=== PATIENT | male | born 1970 | race African-American/Black ===

== ENCOUNTER 2023-05-25 10:30 | Inpatient (IN) | payer SELFPAY ==
[2023-05-25 12:21] LABS: ALBUMIN 4.9 g/dl (3.4-5.0); ALK PHOS 47 U/L (45-117); ANION GAP 12 MMOL/L (8-16); BILIRUBIN,TOTAL 3.8 mg/dl (0.2-1); BLOOD UREA NITROGEN 13.5 mg/dl (7-18); CALCIUM 9.7 mg/dl (8.5-10.1); CHLORIDE 92 mmol/L (98-107); CO2 41 mmol/L (21-32); CREATININE 1.7 mg/dl (0.6-1.3); GLUCOSE,RANDOM 105 mg/dl (74-106); SGOT/AST 77.8 U/L (15-37); SODIUM 145 mmol/L (136-145); TOT PROT 7.9 g/dl (6.4-8.2)
[2023-05-25 12:28] LABS: POTASSIUM 2.2 mmol/L (3.5-5.1)
[2023-05-25] MEDS ORDERED: POTASSIUM CHLORIDE TABS 20 MEQ TABLET.ER (FP) PO ONE ×4 (12:34→19:51)
[2023-05-25] MEDS ORDERED: KCL 10 MEQ IVPB 10 MEQ/100 ML INFUS.BAG IVPB ONE (12:38)
[2023-05-25] MEDS ORDERED: KCL 10 MEQ IVPB 10 MEQ/100 ML INFUS.BAG IVPB SCH (12:45)
[2023-05-25 12:54] LABS: HEMOGLOBIN 15.2 G/dL (11.7-16.9); MCH 28.9 pg (25.7-33.7); MCHC 34.5 g/dl (32.0-35.9); MEAN CELL VOLUME 83.9 fl (80-96); PLATELET COUNT 191.5 10^3/uL (134-434); RBC 5.25 10^6/uL (4.00-5.60); RDW 14.6 % (11.9-15.9); WHITE BLOOD COUNT 3.5 10^3/uL (4.0-10.8)
[2023-05-25 13:01] LABS: PLATELET ESTIMATE ADEQUATE
[2023-05-25] MEDS ORDERED: ASPIRIN 325 MG TABLET PO ONE (13:02)
[2023-05-25] MEDS ORDERED: ASPIRIN 325 MG TABLET ONE (13:37)
[2023-05-25 14:41] LABS: LIPASE 237 U/L (73-393)
[2023-05-25 14:47] LABS: N-TERMINAL BNP 131.1 pg/ml (5-125)
[2023-05-25 19:31] LABS: ALBUMIN 4.5 g/dl (3.4-5.0); BILIRUBIN,TOTAL 2.9 mg/dl (0.2-1); CALCIUM 9.3 mg/dl (8.5-10.1); CREATININE 1.5 mg/dl (0.6-1.3); SGOT/AST 66.7 U/L (15-37); SGPT/ALT 48.4 U/L (7-52); TOT PROT 7.2 g/dl (6.4-8.2)
[2023-05-25] MEDS ORDERED: POTASSIUM CHLORIDE ORAL LIQUID 20 MEQ/15 ML PO ONE (19:42)
[2023-05-25] MEDS: amLODIPine BESYLATE 10 MG TABLET (FP) PO SCH (22:26)
[2023-05-26 02:51] VITALS: BMI 23.7
[2023-05-26 08:53] LABS: BASO % 0.8 % (0-2.0); EOS % 3.5 % (0-4.5); HEMOGLOBIN 13.5 GM/dL (11.7-16.9); LYMPH % 30.3 % (8-40); MCH 27.9 pg (25.7-33.7); MCHC 34.5 g/dl (32.0-35.9); MEAN CELL VOLUME 80.7 fl (80-96); MEAN PLT VOLUME 9.6 fl (7.5-11.1); MONO % 13.3 % (3.8-10.2); NEUT % 52.1 % (42.8-82.8); PLATELET COUNT 203 10^3/uL (134-434); RBC 4.83 M/mm3 (4.00-5.60); WHITE BLOOD COUNT 3.3 K/mm3 (4.0-10.0)
[2023-05-26] MEDS ORDERED: amLODIPine BESYLATE 10 MG TABLET (FP) PO SCH (10:00)
[2023-05-26] MEDS: amLODIPine BESYLATE 10 MG TABLET (FP) PO SCH (10:11)
[2023-05-26] MEDS: POTASSIUM CHLORIDE TABS 20 MEQ TABLET.ER (FP) PO SCH ×2 (10:11→21:05)
[2023-05-26 10:21] LABS: ALBUMIN 3.6 g/dl (3.4-5.0); ALK PHOS 46 U/L (45-117); ANION GAP 6 MMOL/L (8-16); BILIRUBIN,TOTAL 3.7 mg/dL (0.2-1); BLOOD UREA NITROGEN 9.7 mg/dL (7-18); CALCIUM 8.2 mg/dL (8.5-10.1); CHLORIDE 100 mmol/L (98-107); CO2 38 mmol/L (21-32); CREATININE 1.5 mg/dL (0.55-1.3); GLUCOSE,RANDOM 89 mg/dL (74-106); MAGNESIUM 2.2 mg/dL (1.8-2.4); PHOSPHOROUS 2.5 mg/dL (2.5-4.9); POTASSIUM 1.9 mmol/L (3.5-5.1); SGOT/AST 66 U/L (15-37); SGPT/ALT 57 U/L (13-61); SODIUM 144 mmol/L (136-145); TOT PROT 6.6 g/dl (6.4-8.2)
[2023-05-26] MEDS: KCL 10 MEQ IVPB 10 MEQ/100 ML INFUS.BAG IVPB SCH ×7 (10:50→22:52)
[2023-05-26 11:07] LABS: BILIRUBIN,DIRECT 0.5 mg/dL (0.0-0.2)
[2023-05-26] MEDS ORDERED: LOSARTAN POTASSIUM 50 MG TABLET PO SCH (16:15)
[2023-05-26 16:19] LABS: CHLORIDE 100 mmol/L (98-107); SODIUM 143 mmol/L (136-145)
[2023-05-26 16:21] LABS: BLOOD UREA NITROGEN 10.2 mg/dL (7-18); CALCIUM 8.7 mg/dL (8.5-10.1)
[2023-05-26 16:22] LABS: CO2 37 mmol/L (21-32); GLUCOSE,RANDOM 103 mg/dL (74-106)
[2023-05-26 16:24] LABS: SGPT/ALT 67 U/L (13-61)
[2023-05-26 16:25] LABS: CREATININE 1.7 mg/dL (0.55-1.3); SGOT/AST 77 U/L (15-37)
[2023-05-26 16:26] LABS: TOT PROT 7.5 g/dl (6.4-8.2)
[2023-05-26 16:28] LABS: ALK PHOS 54 U/L (45-117)
[2023-05-26] MEDS: SODIUM CHLORIDE 0.9%/KCL 20 MEQ/1,000 ML INFUS.BAG IV SCH (16:35)
[2023-05-26] MEDS: LOSARTAN POTASSIUM 25 MG TABLET PO SCH (16:35)
[2023-05-26 16:40] LABS: ANION GAP 6 MMOL/L (8-16); POTASSIUM 2.4 mmol/L (3.5-5.1)
[2023-05-26] MEDS ORDERED: POTASSIUM CHLORIDE ORAL LIQUID 20 MEQ/15 ML PO ONE (17:35)
[2023-05-26] MEDS: HEPARIN NA (PORCINE) 5,000 UNITS/ML 1ML VIAL SQ SCH (21:05)
[2023-05-27] MEDS: HEPARIN NA (PORCINE) 5,000 UNITS/ML 1ML VIAL SQ SCH ×3 (06:51→21:22)
[2023-05-27 07:39] LABS: BASO % 1.3 % (0-2.0); EOS % 4.8 % (0-4.5); HEMATOCRIT 37.1 % (35.4-49); HEMOGLOBIN 12.9 GM/dL (11.7-16.9); LYMPH % 36.1 % (8-40); MCH 28.4 pg (25.7-33.7); MCHC 34.8 g/dl (32.0-35.9); MEAN CELL VOLUME 81.6 fl (80-96); MEAN PLT VOLUME 9.7 fl (7.5-11.1); NEUT % 45.8 % (42.8-82.8); PLATELET COUNT 195 10^3/uL (134-434); RBC 4.55 M/mm3 (4.00-5.60); RDW 14.1 % (11.9-15.9); WHITE BLOOD COUNT 2.8 K/mm3 (4.0-10.0)
[2023-05-27 08:03] LABS: CHLORIDE 106 mmol/L (98-107); SODIUM 146 mmol/L (136-145)
[2023-05-27 08:07] LABS: ALBUMIN 3.4 g/dl (3.4-5.0); BLOOD UREA NITROGEN 10.9 mg/dL (7-18); CALCIUM 7.9 mg/dL (8.5-10.1); CO2 34 mmol/L (21-32); GLUCOSE,RANDOM 91 mg/dL (74-106); MAGNESIUM 2.2 mg/dL (1.8-2.4)
[2023-05-27 08:10] LABS: SGOT/AST 57 U/L (15-37); SGPT/ALT 55 U/L (13-61)
[2023-05-27 08:11] LABS: CREATININE 1.5 mg/dL (0.55-1.3); PHOSPHOROUS 2.5 mg/dL (2.5-4.9)
[2023-05-27 08:12] LABS: TOT PROT 6.4 g/dl (6.4-8.2)
[2023-05-27 08:13] LABS: ALK PHOS 42 U/L (45-117)
[2023-05-27 08:24] LABS: ANION GAP 7 MMOL/L (8-16); BILIRUBIN,TOTAL 2.6 mg/dL (0.2-1); POTASSIUM 2.3 mmol/L (3.5-5.1)
[2023-05-27] MEDS ORDERED: POTASSIUM CHLORIDE TABS 20 MEQ TABLET.ER (FP) PO ONE (10:30)
[2023-05-27] MEDS: amLODIPine BESYLATE 10 MG TABLET (FP) PO SCH (10:48)
[2023-05-27] MEDS: LOSARTAN POTASSIUM 25 MG TABLET PO SCH (10:48)
[2023-05-27] MEDS: KCL 10 MEQ IVPB 10 MEQ/100 ML INFUS.BAG IVPB SCH ×6 (10:49→22:14)
[2023-05-27] MEDS: POTASSIUM CHLORIDE TABS 20 MEQ TABLET.ER (FP) PO SCH ×3 (10:49→21:21)
[2023-05-27] MEDS: SODIUM CHLORIDE 0.9%/KCL 20 MEQ/1,000 ML INFUS.BAG IV SCH (10:50)
[2023-05-27 11:08] LABS: KAPPA/LAMBDA RATIO, UR 6.82 (1.83-14.26)
[2023-05-27 13:59] LABS: CHLORIDE 106 mmol/L (98-107); SODIUM 145 mmol/L (136-145)
[2023-05-27 14:03] LABS: ALBUMIN 3.5 g/dl (3.4-5.0); CO2 34 mmol/L (21-32); GLUCOSE,RANDOM 103 mg/dL (74-106)
[2023-05-27 14:06] LABS: CREATININE 1.4 mg/dL (0.55-1.3)
[2023-05-27 14:07] LABS: TOT PROT 6.8 g/dl (6.4-8.2)
[2023-05-27 14:08] LABS: BILIRUBIN,TOTAL 2.4 mg/dL (0.2-1)
[2023-05-27 14:09] LABS: ALK PHOS 46 U/L (45-117)
[2023-05-27 14:11] LABS: BLOOD UREA NITROGEN 9.8 mg/dL (7-18); SGPT/ALT 59 U/L (13-61)
[2023-05-27 14:14] LABS: ANION GAP 6 MMOL/L (8-16); CALCIUM 8.2 mg/dL (8.5-10.1); POTASSIUM 2.4 mmol/L (3.5-5.1); SGOT/AST 57 U/L (15-37)
[2023-05-27 19:30] LABS: POTASSIUM 2.7 mmol/L (3.5-5.1)
[2023-05-27] MEDS ORDERED: POTASSIUM CHLORIDE ORAL LIQUID 20 MEQ/15 ML PO ONE (19:42)
[2023-05-28] MEDS: KCL 10 MEQ IVPB 10 MEQ/100 ML INFUS.BAG IVPB SCH ×4 (00:15→23:31)
[2023-05-28] MEDS: HEPARIN NA (PORCINE) 5,000 UNITS/ML 1ML VIAL SQ SCH ×3 (06:37→21:51)
[2023-05-28] MEDS: POTASSIUM CHLORIDE TABS 20 MEQ TABLET.ER (FP) PO SCH ×3 (06:37→21:51)
[2023-05-28 08:06] LABS: MCH 28.5 pg (25.7-33.7); MCHC 35.1 g/dl (32.0-35.9); MEAN CELL VOLUME 81.1 fl (80-96); PLATELET COUNT 225 10^3/uL (134-434); RBC 4.93 M/mm3 (4.00-5.60); RDW 14.7 % (11.9-15.9); WHITE BLOOD COUNT 3.5 K/mm3 (4.0-10.0)
[2023-05-28 08:10] LABS: MYOGLOBIN SERUM 598 ng/mL (28-72)
[2023-05-28 08:29] LABS: BLOOD UREA NITROGEN 9.7 mg/dL (7-18)
[2023-05-28 08:32] LABS: CREATININE 1.5 mg/dL (0.55-1.3); PHOSPHOROUS 2.3 mg/dL (2.5-4.9)
[2023-05-28 08:34] LABS: BILIRUBIN,TOTAL 2.3 mg/dL (0.2-1); TOT PROT 7.8 g/dl (6.4-8.2)
[2023-05-28] MEDS: LOSARTAN POTASSIUM 25 MG TABLET PO SCH (09:43)
[2023-05-28] MEDS: amLODIPine BESYLATE 10 MG TABLET (FP) PO SCH (09:43)
[2023-05-28] MEDS: SODIUM CHLORIDE 0.9%/KCL 20 MEQ/1,000 ML INFUS.BAG IV SCH (10:45)
[2023-05-28] MEDS ORDERED: NAPH,MB-DB/K PH,MBDB POWDER PACKET PO ONE (12:59)
[2023-05-28 16:14] LABS: CHLORIDE 111 mmol/L (98-107); SODIUM 147 mmol/L (136-145)
[2023-05-28 16:17] LABS: BLOOD UREA NITROGEN 10.4 mg/dL (7-18); CALCIUM 9.2 mg/dL (8.5-10.1); CO2 31 mmol/L (21-32); GLUCOSE,RANDOM 119 mg/dL (74-106)
[2023-05-28 16:20] LABS: CREATININE 1.5 mg/dL (0.55-1.3)
[2023-05-28 17:22] LABS: ANION GAP 6 MMOL/L (8-16); POTASSIUM 2.8 mmol/L (3.5-5.1)
[2023-05-28] MEDS ORDERED: POTASSIUM CHLORIDE TABS 10 MEQ TABLET.ER (FP) PO ONE (17:46)
[2023-05-28 21:09] LABS: GLIADIN ANTIBODY IGA 4 units (0-19); GLIADIN ANTIBODY IGG 3 units (0-19)
[2023-05-29] MEDS: POTASSIUM CHLORIDE TABS 20 MEQ TABLET.ER (FP) PO SCH ×2 (06:30→13:34)
[2023-05-29] MEDS: HEPARIN NA (PORCINE) 5,000 UNITS/ML 1ML VIAL SQ SCH ×3 (06:31→21:53)
[2023-05-29] MEDS: amLODIPine BESYLATE 10 MG TABLET (FP) PO SCH (09:36)
[2023-05-29] MEDS: LOSARTAN POTASSIUM 25 MG TABLET PO SCH (09:36)
[2023-05-29] MEDS ORDERED: LOSARTAN POTASSIUM 25 MG TABLET PO ONE (11:30)
[2023-05-29 12:52] LABS: POTASSIUM 2.9 mmol/L (3.5-5.1)
[2023-05-29] MEDS ORDERED: SPIRONOLACTONE 25 MG TABLET PO SCH (20:30)
[2023-05-29] MEDS: LOSARTAN POTASSIUM 50 MG TABLET PO SCH (21:53)
[2023-05-30] MEDS: HEPARIN NA (PORCINE) 5,000 UNITS/ML 1ML VIAL SQ SCH ×3 (06:32→21:16)
[2023-05-30 07:41] LABS: HEMATOCRIT 37.5 % (35.4-49); HEMOGLOBIN 13.2 GM/dL (11.7-16.9); MCH 28.3 pg (25.7-33.7); MCHC 35.2 g/dl (32.0-35.9); MEAN CELL VOLUME 80.4 fl (80-96); MEAN PLT VOLUME 8.6 fl (7.5-11.1); PLATELET COUNT 214 10^3/uL (134-434); RBC 4.66 M/mm3 (4.00-5.60); RDW 14.8 % (11.9-15.9); WHITE BLOOD COUNT 3.1 K/mm3 (4.0-10.0)
[2023-05-30 07:58] LABS: CHLORIDE 110 mmol/L (98-107); SODIUM 148 mmol/L (136-145)
[2023-05-30 08:02] LABS: CALCIUM 8.9 mg/dL (8.5-10.1); CO2 30 mmol/L (21-32); GLUCOSE,RANDOM 94 mg/dL (74-106)
[2023-05-30 08:03] LABS: BLOOD UREA NITROGEN 9.1 mg/dL (7-18); MAGNESIUM 2.1 mg/dL (1.8-2.4)
[2023-05-30 08:06] LABS: CREATININE 1.6 mg/dL (0.55-1.3); PHOSPHOROUS 3.7 mg/dL (2.5-4.9)
[2023-05-30 08:19] LABS: ANION GAP 7 MMOL/L (8-16); POTASSIUM 2.5 mmol/L (3.5-5.1)
[2023-05-30] MEDS: SPIRONOLACTONE 25 MG TABLET PO SCH (09:35)
[2023-05-30] MEDS: amLODIPine BESYLATE 10 MG TABLET (FP) PO SCH (09:35)
[2023-05-30] MEDS: LOSARTAN POTASSIUM 50 MG TABLET PO SCH ×2 (09:35→21:16)
[2023-05-30] MEDS: KCL 10 MEQ IVPB 10 MEQ/100 ML INFUS.BAG IVPB SCH ×3 (10:29→14:31)
[2023-05-30] MEDS: POTASSIUM CHLORIDE TABS 20 MEQ TABLET.ER (FP) PO SCH ×2 (13:12→21:16)
[2023-05-30 14:08] LABS: RENIN ACTIVITY(PRA) 0.637 ng/mL/hr (0.167-5.380)
[2023-05-31] MEDS: HEPARIN NA (PORCINE) 5,000 UNITS/ML 1ML VIAL SQ SCH ×2 (06:08→13:20)
[2023-05-31] MEDS: POTASSIUM CHLORIDE TABS 20 MEQ TABLET.ER (FP) PO SCH ×2 (06:08→13:20)
[2023-05-31 07:44] LABS: HEMATOCRIT 36.9 % (35.4-49); HEMOGLOBIN 13.1 GM/dL (11.7-16.9); MCH 28.7 pg (25.7-33.7); MCHC 35.6 g/dl (32.0-35.9); MEAN CELL VOLUME 80.7 fl (80-96); MEAN PLT VOLUME 9.2 fl (7.5-11.1); PLATELET COUNT 224 10^3/uL (134-434); RBC 4.57 M/mm3 (4.00-5.60); WHITE BLOOD COUNT 3.4 K/mm3 (4.0-10.0)
[2023-05-31 08:08] LABS: POTASSIUM 3.1 mmol/L (3.5-5.1)
[2023-05-31 08:14] LABS: PHOSPHOROUS 2.7 mg/dL (2.5-4.9)
[2023-05-31 08:16] LABS: BILIRUBIN,TOTAL 2.4 mg/dL (0.2-1); TOT PROT 7.1 g/dl (6.4-8.2)
[2023-05-31 08:22] LABS: ALBUMIN 3.6 g/dl (3.4-5.0); BLOOD UREA NITROGEN 14.7 mg/dL (7-18)
[2023-05-31 08:25] LABS: CREATININE 1.6 mg/dL (0.55-1.3); MAGNESIUM 2.1 mg/dL (1.8-2.4)
[2023-05-31] MEDS: amLODIPine BESYLATE 10 MG TABLET (FP) PO SCH (09:18)
[2023-05-31] MEDS: SPIRONOLACTONE 25 MG TABLET PO SCH (09:18)
[2023-05-31] MEDS: LOSARTAN POTASSIUM 50 MG TABLET PO SCH (09:18)
[2023-05-31 14:49] VITALS: BP 145/99; PULSE 69; RESP 16; TEMP 98
== END 2023-05-31 17:25 | disposition home or self-care (01) | DRG 351 ==
LOC: FER 10:30 → UNDOADMIN 12:58 → FM/S 12:58 → J4W 20:59
PROVIDERS: ADMIT Internal Medicine; ATTEND Internal Medicine
DX: M62.82 Rhabdomyolysis (principal); E87.3 Alkalosis; I44.0 Atrioventricular block, first degree; I12.9 Hypertensive chronic kidney disease with stage 1 through stage 4 chronic kidney disease, or unspecified chronic kidney disease; N18.30 Chronic kidney disease, stage 3 unspecified; N17.9 Acute kidney failure, unspecified; E80.4 Gilbert syndrome; E87.6 Hypokalemia; M89.9 Disorder of bone, unspecified; I24.8 Other forms of acute ischemic heart disease; R82.1 Myoglobinuria; R94.5 Abnormal results of liver function studies; M89.50 Osteolysis, unspecified site; R55 Syncope and collapse; W18.30XA Fall on same level, unspecified, initial encounter; Y92.89 Other specified places as the place of occurrence of the external cause; Y99.8 Other external cause status
CPT/HCPCS: 0241U-QW; 36415; 70450-TC; 71046-TC-FY; 76700-TC; 77074-TC-FY; 80048; 80053; 81003; 82088; 82248; 82310; 82436; 82533; 82550; 82553; 82962; 83036; 83516; 83605; 83690; 83735; 83874; 83880; 83883; 83930; 83935; 83970; 84100; 84132; 84133; 84153; 84155; 84156; 84157; 84165; 84244; 84300; 84443; 84484; 85025; 85027; 86038; 86704; 86705; 86707; 86709; 86803; 87086; 87340; 87350; 87517; 93005; 93306-TC; 99291; J1644